=== PATIENT | female | born 1990 | race Caucasian/White ===

== ENCOUNTER 2020-01-09 08:00 | Outpatient (CLI) | payer OTHER ==
[2020-01-09 19:45] LABS: TRICHOMONAS VAGINALIS DNA NEGATIVE (NEGATIVE)
== END 2020-01-09 23:59 | disposition home or self-care (01) ==
LOC: LAB.R 08:00
PROVIDERS: ATTEND Advanced Practice Midwife
DX: Z34.00 Encounter for supervision of normal first pregnancy, unspecified trimester (principal); Z36.85 Encounter for antenatal screening for Streptococcus B
CPT/HCPCS: 36415; 81003; 85027; 87086; 87491; 87591; 87661; 87797

== ENCOUNTER 2020-01-09 08:00 | Outpatient (CLI) | payer OTHER ==
[2020-01-09 12:20] LABS: HGB - HEMOGLOBIN 10.6 g/dL (12.0-16.0); MEAN CORPUSCULAR HEMOGLOBIN 28.7 pg (27.0-31.0); MEAN CORPUSCULAR HGB CONC 32.1 g/dL (32.0-36.0); MEAN CORPUSCULAR VOLUME 89.4 fL (81.0-99.0); MEAN PLATELET VOLUME 10.1 fL (7.9-10.8); RED BLOOD COUNT 3.69 10^6/uL (4.20-5.40); RED CELL DISTRIBUTION WIDTH 14.4 % (12.0-15.0); WHITE BLOOD COUNT 9.1 x10^3/uL (4.8-10.8)
[2020-01-09 12:34] LABS: BILIRUBIN,URINE NEGATIVE (NEGATIVE); GLUCOSE, URINE (UA) NEGATIVE (NEGATIVE); KETONES,URINE (UA) TRACE mg/dL (NEGATIVE); LEUKOCYTE ESTERASE, URINE NEGATIVE (NEGATIVE); NITRITE,URINE NEGATIVE (NEGATIVE); OCCULT BLOOD,URINE NEGATIVE (NEGATIVE); PROTEIN,URINE NEGATIVE (NEGATIVE); UROBILINOGEN,URINE 0.2 (NORMAL) E.U./dL (NORMAL)
[2020-01-09 13:03] LABS: CLARITY,URINE CLEAR (CLEAR)
== END 2020-01-09 23:59 | disposition home or self-care (01) ==
LOC: LAB.WCP 08:00
PROVIDERS: ATTEND Advanced Practice Midwife
DX: Z34.00 Encounter for supervision of normal first pregnancy, unspecified trimester (principal)
CPT/HCPCS: 36415; 81001; 81003; 85027; 87086

== ENCOUNTER 2020-01-30 17:25 | Outpatient (CLI) | payer OTHER ==
--- NOTE | 2020-02-01 09:29 | Ultrasound Report ---
Reason: SUPER OF NORMAL Procedure Date: 01/30/2020 Accession Number: [id number] / [id number] Procedure: US - OB F/U or Repeat CPT Code: Final Report FULL RESULT: EXAM: FOLLOW-UP OBSTETRICAL ULTRASOUND EXAM DATE: 01/30/2020 05:31 PM. CLINICAL HISTORY: SUPER OF NORMAL . Measuring less than dates COMPARISON: 09/20/2019. TECHNIQUE: Real-time sonographic evaluation of the fetus performed by the telecommunication engineer. Additional transvaginal imaging to more accurately evaluate cervical length/placental position/etc. Multiple promotions representative static images were saved for review. DATING: Established EGA 39 weeks 3 days with KRISTI 02/15/2020 based on assigned dating. EGA 37 weeks 1 day with KRISTI 02/19/2020 based on the current ultrasound. GENERAL EVALUATION [place] . Cardiac activity: 152 bpm. movement: Visualized. Presentation: Cephalic. Placenta: Posterior right lateral position. Amniotic fluid: Normal. RAÚL 19.4 cm. MVP 6.1 cm. BIOMETRY Bi-Parietal Diameter (BPD): 9.2 cm, 37 weeks 3 days Head Circumference (HC): 33.4 cm, 38 weeks 2 days Abdominal Circumference (AC): 32.3 cm, 36 weeks 2 days Femur Length (FL): 7.1 cm, 36 weeks 3 days Estimated Weight: 2992 g, 12 percentile for 39 weeks 3 days. IMPRESSION: 1. [place] live intrauterine with gestational age 39 weeks 3 days based on source of assigned dating. Fetus is cephalic with posterior right lateral placenta 2. Estimated weight is within expected limits for assigned dating. Estimated weight 12% 3. Normal RAÚL RADIA
== END 2020-01-30 17:26 | disposition home or self-care (01) ==
LOC: DI 17:25
PROVIDERS: ATTEND Advanced Practice Midwife
DX: Z34.93 Encounter for supervision of normal pregnancy, unspecified, third trimester (principal)
CPT/HCPCS: 76816

== ENCOUNTER 2020-02-07 12:21 | Inpatient (IN) | payer OTHER ==
[2020-02-07] MEDS ORDERED: SODIUM CHLORIDE FLUSH 0.9% 10 ML SYRINGE IVP PRN (12:40)
[2020-02-07] MEDS ORDERED: OXYTOCIN/SODIUM CHLORIDE 500 ML IV PRN (12:40)
[2020-02-07] MEDS ORDERED: ONDANSETRON 4 MG/2 ML VIAL IVP PRN (12:40)
[2020-02-07] MEDS ORDERED: fentaNYL 100 MCG/2 ML VIAL IVP PRN (12:40)
--- NOTE | 2020-02-07 12:45 | HISTORY & PHYSICAL EXAMINATION ---
Admit History - Visit Reason Visit Reason: Contractions - : 2 Parity: 1 Premature: 0 Ectopic: 0 : 0 Risk/History: positive: None Smoking Status: Never smoker - Mother's Labs Mother's Blood Type: positive: A Mother's RH: positive: Positive GBS: positive: Group B Strep Positive Rubella Status: positive: Immune - Other Maternal History Other Maternal History: 30yo Gestation: 40.4wks gestation by 12.2wks US c/w LMP Ctx every six minutes with moderate strength FHTs in 140s per doppler in office +FM; -VB(does report bloody show), -LOF Care- adequate care with [facility] with transfer of care at 36.3wks complications Size<Dates: EFW 12% per growth US on 01/30/2020 OB Hx (G/P explained) *G1: 2014 *G2: current Medications- * Vitamin- daily Allergies *NKA Medical History *Non-rheumatic pulmonary valve disorder Surgical History *Tonsillectomy (1995) *[place] Teeth (2010) Family History- non-contributory Social History- non-contributory Labs A-positive Rubella- immune Genetic testing- Negative GBS- positive Glucola_ 3hr (138/130/103) Immunizations TDAP- given per [facility] Exam: SVE /-2/soft/bulging bag (in office at 1015am) Ctx- moderate strength q5-9mins Assessment 29yo at 40.4wks gestation GBS Positive SGA fetus Active Labor Plan Admit to Labor and Delivery Antibiotics for GBS prophylaxis Monitoring- Intermittent monitoring (10min q1h) Comfort measures available- epidural, fentanyl , and non-pharmacological methods Diet/Activity- to patient preference Anticipate Review of Systems - Constitutional Constitutional: denies: Fatigue, Fever, Chills, Weakness - Eyes Eyes: denies: Blurred vision, Spots in vision - Ears, Nose & Throat Ears, Nose & Throat: denies: Hearing loss, Nasal pain, Nasal discharge, Nasal congestion, Postnasal drainage, Sore throat - Gastrointestinal Gastrointestinal: denies: Constipation, Diarrhea, Nausea, Vomiting - Genitourinary Genitourinary: denies: Frequency, Urgency, Hematuria - Musculoskeletal Musculoskeletal: denies: Limited range of motion, Muscle weakness - Integumentary Integumentary: denies: Rash, Pruritis - Neurological Neurological: denies: General weakness, Focal weakness, Headache, Dizziness - Psychiatric Psychiatric: denies: Depression, Anxiety Physical - Abdominal Exam Contraction Intensity: positive: Moderate Uterine Resting Tone: positive: Soft - Monitoring Strip Review: positive: Category I - Presentation Presentation: positive: Vertex - Vaginal Exam Membranes: positive: Membranes intact
[2020-02-07] MEDS ORDERED: LACTATED RINGERS 1,000 ML IV SCH (13:00)
[2020-02-07] MEDS ORDERED: AMPICILLIN 2 GM in SODIUM CHLORIDE 0.9% MINIBAG 100 ML IV ONE (13:00)
[2020-02-07 13:06] LABS: BASOPHILS % (AUTO) 0.4 %; EOSINOPHILS # (AUTO) 0.1 10^3/uL (0.0-0.7); EOSINOPHILS % (AUTO) 1.1 %; HGB - HEMOGLOBIN 11.1 g/dL (12.0-16.0); LYMPHOCYTES # (AUTO) 1.7 10^3/uL (1.5-3.5); LYMPHOCYTES % (AUTO) 17.3 %; MEAN CORPUSCULAR HEMOGLOBIN 28.9 pg (27.0-31.0); MEAN CORPUSCULAR VOLUME 87.5 fL (81.0-99.0); MEAN PLATELET VOLUME 9.6 fL (7.9-10.8); MONOCYTES # (AUTO) 0.7 10^3/uL (0.0-1.0); MONOCYTES % (AUTO) 7.3 %; NEUTROPHILS # (AUTO) 7.4 10^3/uL (1.5-6.6); NEUTROPHILS % (AUTO) 73.2 %; PLT - PLATELET COUNT 216 10^3/uL (130-450); RED BLOOD COUNT 3.84 10^6/uL (4.20-5.40); RED CELL DISTRIBUTION WIDTH 14.1 % (12.0-15.0); WHITE BLOOD COUNT 10.1 x10^3/uL (4.8-10.8)
[2020-02-07] MEDS: ACETAMINOPHEN 325 MG TABLET PO SCH ×2 (13:58→20:50)
[2020-02-07] MEDS ORDERED: AMPICILLIN 1 GM in SODIUM CHLORIDE 0.9% MINIBAG 100 ML IV SCH (17:00)
[2020-02-07] MEDS ORDERED: SODIUM CHLORIDE FLUSH 0.9% 10 ML SYRINGE IVP SCH (17:00)
[2020-02-07] MEDS ORDERED: WITCH HAZEL/GLYCERIN 1 PAD TOP PRN (17:40)
--- NOTE | 2020-02-07 17:40 | DELIVERY NOTE ---
Delivery Note - Labor Labor: positive: Spontaneous - Delivery Method Delivery Method: positive: Spontaneous vaginal delivery - Presentation Presentation: positive: Vertex, LOP - left occiput posterior - Nuchal Cord Nuchal Cord: positive: None - Amniotic Fluid Description Amniotic Fluid Description: positive: Clear - Laceration Laceration: positive: None - [place] : positive: Placed in direct skin contact with mother, Stimulated, Warmed, [place] used sex: positive: Female - Cord Cord: positive: 3 vessels - Placenta Placenta: positive: Intact - Estimated Blood Loss Estimated Blood Loss (in cc): 150 - Delivery Comments (Free Text/Narrative) Delivery Comments (Free Text/Narrative): Note: Labor: This 29 year old, , @40.4wks gestation by 12.2week Ultrasound, confirmed by LMP, presented @ the office today in early labor. Cervix was 6/90/- 2 and baby was vertex. Pt was then admitted to L&D for active labor. FHR pattern demonstrated 140 baseline in a Category I pattern. Normal labor course. SROM occurred @ 1659 and amount and color of fluid were noted to be moderate and clear. : Normal of a female on 02/07/2020 @ 1706. The was placed on maternal abdomen, stimulated, dried and placed skin to skin. Apgars 8 at one minute and 9 at five minutes. The umbilical cord was allowed to stop pulsating at which time it was doubly clamped by CNM and cut by FOB. Physiologic management was done. Fundal massage and gentle cord traction applied for active third stage management. Cord blood was obtained. Placenta delivered spontaneously and intact at 1712. Three vessel cord. EBL 150 mL. Fourth Stage: Uterine fundus firm and without excessive bleeding. The perineum, vagina, and cervix were inspected and found to be intact. Tissues well approximated. initiated. Family bonding well. Both mother and baby are in stable condition.
[2020-02-07] MEDS ORDERED: IBUPROFEN 600 MG TABLET PO SCH (18:00)
--- NOTE | 2020-02-08 09:48 | PROVIDER PROGRESS NOTE ---
Subjective - Prog Note Date Prog Note Date: 02/08/20 Prog Note Time: 09:45 - Subjective Subjective: PPD 1 Feeling well, noting contractions when ; pain otherwise well controlled. Normal lochia. Ambulating, voiding, lorenza reg diet. VSS afeb Abd soft, non-tender. Document Reviewer firm well below umbilicus. A/P Stable. Has no contraceptive plan; discussed options. Inadequately treated for GBS; baby to be observed for full 48 hours. Pt understands. Continue routine care. Objective - Vital Signs/Intake & Output Vital Signs: Vital Signs x48h Temp Pulse Resp BP 02/08/20 03:21 98.3 F 89 18 110/64 Intake & Output: Intake & Output 02/05/20 02/06/20 02/07/20 02/08/20 23:59 23:59 23:59 23:59 Intake Total 1202.5 Output Total 1020 Balance 182.5 - Lab Results Fish Bones: 02/07/20 12:53 Other Labs: Lab Results x24hrs 02/07/20 Range/Units 12:53 WBC 10.1 (4.8-10.8) x10^3/uL RBC 3.84 L (4.20-5.40) 10^6/uL Hgb 11.1 L (12.0-16.0) g/dL Hct 33.6 L (37.0-47.0) % MCV 87.5 (81.0-99.0) fL MCH 28.9 (27.0-31.0) pg MCHC 33.0 (32.0-36.0) g/dL RDW 14.1 (12.0-15.0) % Plt Count 216 (130-450) 10^3/uL MPV 9.6 (7.9-10.8) fL Neut # (Auto) 7.4 H (1.5-6.6) 10^3/uL Lymph # (Auto) 1.7 (1.5-3.5) 10^3/uL [place] # (Auto) 0.7 (0.0-1.0) 10^3/uL Eos # (Auto) 0.1 (0.0-0.7) 10^3/uL Baso # (Auto) 0.0 (0.0-0.1) 10^3/uL Absolute Nucleated RBC 0.00 x10^3/uL Nucleated RBC % 0.0 /100WBC
--- NOTE | 2020-02-08 09:57 | DISCHARGE SUMMARY ---
"Discharge Summary Admit Date: 02/07/20 Code Status: Attempt Resuscitation Condition at Discharge: Good Discharge Disposition: Home, Self Care - DIAGNOSES Admission Diagnoses: Labor at 40w4d - HPI History of Present Illness: 29yo G2 now P2 who was admitted from clinic in active labor. Intact membranes, no bleeding, normal activity. Pt was followed for S<D. Otherwise uncomplicated . - CONSULTS | PROCEDURES Procedures: - HOSPITAL COURSE Hospital Course: Pt rapidly progressed to full dilation and was delivered of a 3358gm female infant apgars 8/9 on 02/06. No lacerations. EBL 150cc She was inadequately treated for GBS prophyaxis. Baby remained stable. Patient's course was uncomplicated. She is planning Nexplanon for contraception. She was DC'd home on PPD 2 with follow up scheduled. - ALLERGIES Allergies/Adverse Reactions: Allergies Allergy/AdvReac Type Severity Reaction Status Date / Time No Known Drug Allergies Allergy Verified 02/07/20 13:03 - PHYSICAL EXAM AT DISCHARGE General Appearance: positive: No acute distress Respiratory: positive: No respiratory distress Abdomen: positive: Non-tender, No distention (fundus firm below umbilicus) Skin: positive: Color nml, Warm, Dry Extremities: positive: No pedal edema Neurologic/Psychiatric: positive: Oriented x3, Mood/affect nml - LABS Result Diagrams: 02/07/20 12:53"
--- NOTE | 2020-02-09 13:08 | PROVIDER PROGRESS NOTE ---
Subjective - Prog Note Date Prog Note Date: 02/09/20 Prog Note Time: 13:05 - Subjective Subjective: PPD 2 Feeling well. Ambulating, lorenza reg diet, no pain. Scant lochia, well. Counseled re contraception. Planning Nexplanon. VSS afeb Abd soft, non-tender. Fundus firm below umbilicus. A/P Stable. DC home today F/U in 1 week for nexplanon and 6 wks for check. Objective - Vital Signs/Intake & Output Vital Signs: Vital Signs x48h Temp Pulse Resp BP Pulse Ox 02/09/20 11:38 98.4 F 99 18 125/60 98 02/09/20 06:13 98.2 F 75 16 114/65 98 Intake & Output: Intake & Output 02/06/20 02/07/20 02/08/20 02/09/20 23:59 23:59 23:59 23:59 Intake Total 1202.5 Output Total 1020 Balance 182.5 - Lab Results Fish Bones: 02/07/20 12:53
--- NOTE | 2020-02-09 13:13 | Discharge Plan ---
Discharge Plan Problem Reviewed?: Yes Disposition: Home, Self Care Condition: Good Diet: Regular Activity Restrictions: pelvic rest Shower Restrictions: No Driving Restrictions: No No Smoking: If you smoke, Please STOP! Call for help. Follow-up with: YU THOMAS MD [Primary Care Provider] - Monster Jimenes MD [Provider Admit Priv/Credential] -
[2020-02-09 16:55] VITALS: BP 121/57
--- NOTE | 2020-02-09 18:05 | Labor Flowsheet ---
Labor Flowsheet Datetime Report Generated by CPN: 02/09/2020 18:05 Datetime: 02/07/2020 19:14 VITAL SIGNS NBP Sys/Linh/Mean (mmHg): 140 : 80 : 94 Pulse: 74 Datetime: 02/07/2020 19:00 Temperature (C): 36.6 Temperature Route: Oral PAIN Pain Scale: 3 Pain Presence: Intermittent Pain Type: Cramping Pain Location: Abdomen Pain Relief Measures: Comfort Measures Pain Assessment Comments: refused pain medication Datetime: 02/07/2020 17:06 Stage of : Recovery ASSESSMENT A Monitor Mode: Telemetry FHR Baseline Rate : 130 Variability: Moderate 6-25 bpm Accelerations: None Category: Category II Comments: FHR 110s-130s Oxygen Method: Room Air STAGE 2 Pushing: Urge to Push Pushing Position: Pushing with Contractions Pushing Progress: Descent with Pushing; with Pushing Datetime: 02/07/2020 17:00 UTERINE ACTIVITY Monitor Mode: External Frequency (min): 2-4 Quality: Strong Duration (sec): 60-120 Pattern: Normal: <= 5 Contractions in 10 Minutes Resting Tone (Palpate): Relaxed Decelerations: None Datetime: 02/07/2020 16:59 Membranes Rupture Method: Spontaneous Amniotic Fluid Color: Clear Amniotic Fluid Amount: Moderate Datetime: 02/07/2020 16:53 Patient Position/Activity: Left Lateral Datetime: 02/07/2020 16:51 Monitor Interventions for UA: [place] Adjusted Monitor Interventions for FHR: Ultrasound Adjusted Datetime: 02/07/2020 16:47 COMMUNICATION Provider Notified (Name): H.Reynaldo CNM Communication Comments: at bedside Datetime: 02/07/2020 16:41 Patient Care Comments: out of bathtub Datetime: 02/07/2020 16:33 Comfort Measures: Breathing/Relaxation; Hot Shower/Tub/Spa; Family Support LaborFlag: Labor Datetime: 02/07/2020 16:25 I/O Interventions: Clear Liquids Given Datetime: 02/07/2020 16:00 Contraction Comments: coupling contractions Datetime: 02/07/2020 15:57 Respirations: 20 SpO2 (%): 100 Datetime: 02/07/2020 15:36 VAGINAL EXAM Dilatation (cm): 9.0 Effacement (%): 90 Station: -1 Exam by: Norma Galeanoville CNM Cervix, Consistency: Soft Datetime: 02/07/2020 15:11 Pain Coping: Breathing Through Contractions; Declines Medication or Epidural Datetime: 02/07/2020 13:10 MEDICATIONS Antibiotics: Ampicillin IV 2 Gm Datetime: 02/07/2020 12:54 PATIENT CARE IV/Blood Work: IV Started; Labs Drawn with IV Start
== END 2020-02-09 18:00 | disposition home or self-care (01) | DRG 807 ==
LOC: WFO 12:21 → FBP 12:23 → WFO 12:39 → FBP 12:40 → OBS 19:40
PROVIDERS: ADMIT Advanced Practice Midwife; ATTEND Obstetrics & Gynecology
PROC: 10E0XZZ Delivery of Products of Conception, External Approach (ICD-10-PCS; principal; 2020-02-07)
DX: O99.824 Streptococcus B carrier state complicating childbirth (principal); Z37.0 Single live birth; O32.8XX0 Maternal care for other malpresentation of fetus, not applicable or unspecified; O99.42 Diseases of the circulatory system complicating childbirth; I37.9 Nonrheumatic pulmonary valve disorder, unspecified; Z3A.40 40 weeks gestation of pregnancy
CPT/HCPCS: 85025